=== PATIENT | male | born 1990 | race Caucasian/White ===

== ENCOUNTER 2018-09-27 17:20 | Emergency (ER) | payer OTHER ==
[2018-09-27] MEDS: IBUPROFEN 600 MG TAB PO (20:06)
== END 2018-09-27 20:07 | disposition home or self-care (01) ==
LOC: E/R 17:20
DX: S90.31XA Contusion of right foot, initial encounter (principal); W20.8XXA Other cause of strike by thrown, projected or falling object, initial encounter; Y92.9 Unspecified place or not applicable
CPT/HCPCS: 73630; 99283-25